=== PATIENT | male | born 1930 | race Caucasian/White ===

== ENCOUNTER → 2021-11-04 | Outpatient (CLI) | payer MEDICARE ==
[2021-11-04 14:00] VITALS: BP 127/81
[2021-11-04 14:10] VITALS: BP_SYST 129; BP_SYST 134; BP_DIAS 73; BP_DIAS 80
--- NOTE | 2021-11-04 14:28 | NUR ---
[employer] rep. adjusted pacemaker to pace at 75 during study. Patient's vital signs remained stable throughout study. Patient's pacemaker settings returned to previous settings after study was complete. No problems noted and patient assisted to radiology waiting area by MRI staff.
--- NOTE | 2021-11-04 14:56 | RAD ---
EXAM: Lumbar spine MRI without contrast. HISTORY: Spinal stenosis. TECHNIQUE: Multiplanar, multisequence magnetic resonance imaging of the lumbar spine was performed wi thout contrast. COMPARISON: None. FINDINGS: There is mild lumbar scoliosis. There is 2 mm grade 1 anterolisthesis of L4 and L5. There i s 3 mm retrolisthesis of L5 on S1. There is multilevel endplate remodeling. There is disc space narro wing and osteophytosis at L5-S1. There are few endplate Schmorl's nodes. There are few osseous suman iomas. There is no suspicious osseous lesion. The conus terminates at L1. At L1-L2, there is no stenosis. At L2-L3, there is a left foraminal disc protrusion and osteophyte complex superimposed on a disc bul ge and endplate remodeling. There is mild left extraforaminal stenosis. At L3-L4, there is a disc bulge and endplate remodeling. There is mild central canal stenosis. At L4-L5, there is a left foraminal to extraforaminal disc protrusion with 3 mm superior extrusion chavarria perimposed on endplate remodeling. There is severe bilateral facet arthropathy. There is hypertrophy of the ligamentum flavum. There is grade 1 anterolisthesis. There is mild left foraminal stenosis wit h near abutment of the exiting left L4 nerve root. There is moderate central canal stenosis. At L5-S1, there are bilateral foraminal to extra foraminal disc protrusions and osteophyte complexes superimposed on a disc bulge and endplate osteophytosis. There is retrolisthesis. There is moderate b ilateral foraminal stenosis with abutment of the exiting L5 nerve roots. IMPRESSION: Multilevel degenerative change involving the lumbar spine, described in detail above. Thi s results in stenosis at the aforementioned levels. The central canal stenosis is most significant at L4-L5 and the foraminal stenosis is most significant at L5-S1. Electronically signed by: Anita Ann MD (11/04/2021 2:54 PM) [id number]
== END ==
LOC: MRI 13:13
PROVIDERS: ATTEND Orthopaedic Surgery Sports Medicine
DX: M47.816 Spondylosis without myelopathy or radiculopathy, lumbar region (principal); M51.27 Other intervertebral disc displacement, lumbosacral region; M25.78 Osteophyte, vertebrae; M48.07 Spinal stenosis, lumbosacral region; M43.17 Spondylolisthesis, lumbosacral region; D18.09 Hemangioma of other sites; M51.46 Schmorl's nodes, lumbar region
CPT/HCPCS: 72148

== ENCOUNTER → 2021-11-23 | Outpatient (CLI) | payer MEDICARE ==
[2021-11-04 14:10] VITALS: BP 134/73
[~2021-11-23] MED LIST: ACET325T21 PO; ASCO500C PO; ASPI-630 PO; ATOR40TA59 PO; BRIM5DRO2 OP; CARV25TA2 PO; CYAN100072 PO; DEXAMETHASONE PRES.FREE 10 MG/ML VIAL. ONE; ERGO800010 PO; FINA5TAB4 PO; FURO-69 PO; GABA-585 PO; GLIM1TAB7 PO; HYDR-2868 PO; IOHEXOL 180 MG/ML 10 ML VIAL. ONE; LATA2.5D2 OU; MELA10CA PO; METF-658 PO; METF100010 PO; NAPR220T70 PO; NITR0.4T22 SL; POLY17PO29 PO; POTA-121 PO; TELM80TA PO; UBIQ100C2 PO
--- NOTE | 2021-11-23 13:03 | PDOC1 ---
INITIAL PAIN CONSULT DATE OF SERVICE: DOS: DATE: 11/23/21 TIME: 12:57 CHIEF COMPLAINT: Chief Complaint: Low back and right lower extremity pain HISTORY OF PRESENT ILLNESS: 89-year-old male presents with history of pain low back right lower extremity for about 2 months not the result of any specific injury or accident that he is aware of, but has been getting worse with time patient seen his orthopedic surgeon who did some x-rays on his hip and low back showed some moderate degenerative change of the hip but significant findings in the low back with MRI scan demonstrating L4-5 left foraminal extremities protrusion with superior extrusion superimposed on endplate remodeling with severe bilateral facet arthropathy with hypertrophy of ligamentum flavum mild left foraminal stenosis with near abutment of the exiting left L4 nerve root moderate central canal stenosis L5-S1 showing foraminal disc protrusion osteophyte complex superimposed on a disc bulge and endplate osteophytosis with moderate bilateral foraminal stenosis with abutment of the exiting L5 nerve roots. Patient reports pain is worse with walking standing changing positions worse in the morning better later in the day patient reports is constant in the back sharp and throbbing shooting in the leg and the right side posterior gluteus lateral thigh anterior thigh medial thigh and lateral calf radiating into the leg aching in the back as well patient reports its better at night generally does not awaken him from sleep does not affect his bowel bladder control does affect his go to walk and he is using a walker which he has with him today. Patient is had physical therapy and this is ongoing in home which she reports helped somewhat also had chiropractic treatments multiple times which were not helpful patient is doing exercise on his own as well patient taking Aleve 3 times a day as well as gabapentin 100 mg 3 times a day both of which help but only by about 30%. Patient rates his disability rating 0-10 10 being the worst is an 8 with family responsibilities and recreation 9 with social activity 8 with self-care and 7 with life support activities. Patient reports no bowel or bladder changes or incontinence, with the pain. PAST MEDICAL HISTORY: PMH: Arthritis, type 2 diabetes, coronary artery disease, bladder cancer PREVIOUS SURGERIES: Past Surgical Hx: Bilateral cataract extractions, coronary artery bypass grafting, pacemaker placement CURRENT MEDICATIONS: Current Meds: Active Scripts Medications Dose Route/Sig Max Daily Dose Days Date Category Dose Instructions Aleve (Naproxen Sodium) 220 Mg Tablet 220 Mg PO TID 11/23/21 Reported Gabapentin (Gabapentin) 100 Mg Capsule 100 Mg PO TID 11/23/21 Reported Micardis (Telmisartan) 80 Mg Tablet 1 Tab PO DAILY 11/23/21 Reported Klor-Con M20 (Potassium Chloride) 20 Meq Tab.er.prt 20 Meq PO DAILY 11/23/21 Reported NITROGLYCERIN SubLingual (Nitroglycerin) 0.4 Mg Tab.subl 0.4 Mg SL PRN Q5MIN PRN 11/23/21 Reported Miralax (Polyethylene Glycol 3350) 17 Gm Powd.pack 1 Packet PO DAILY 2 11/23/21 Reported dissolve in water Metformin Hcl Er (Metformin Hcl) 500 Mg Tab.er.24h 500 Mg PO HS 11/23/21 Reported Metformin Hcl Er (Metformin Hcl) 1,000 Mg Tab.er.24 1,000 Mg PO DAILY 11/23/21 Reported Melatonin 10 Mg Capsule 1 Cap PO QHS 30 11/23/21 Reported Xalatan (Latanoprost) 2.5 Ml Drops 1 Drop OU QHS 11/23/21 Reported Hydralazine Hcl 25 Mg Tablet 1 Tab PO TID 11/23/21 Reported Glimepiride 1 Mg Tablet 1 Tab PO DAILY 11/23/21 Reported Gabapentin (Gabapentin) 100 Mg Capsule 100 Mg PO TID 11/23/21 Reported Lasix (Furosemide) 20 Mg Tablet 1 Tab PO DAILY PRN 30 11/23/21 Reported Finasteride 5 Mg Tablet 1 Tab PO DAILY 11/23/21 Reported Ergocalciferol (Ergocalciferol (Vitamin D2)) 200 Mcg/1 Ml Drops 1,250 Mcg PO WEEKLY 11/23/21 Reported B-12 (Cyanocobalamin (Vitamin B-12)) 1,000 Mcg Tablet 500 Mcg PO DAILY 11/23/21 Reported Ubiquinol 100 Mg Capsule 1 Cap PO DAILY 30 11/23/21 Reported Combigan Eye Drops (Brimonidine Tartrate/Timolol) 5 Ml Drops 5 Ml OP DAILY 11/23/21 Reported Carvedilol 25 Mg Tablet 25 Mg PO BIDWMEALS 11/23/21 Reported Atorvastatin Calcium 40 Mg Tablet 1 Tab PO DAILY 11/23/21 Reported Aspirin 81 Mg Tab.chew 1 Tab PO DAILY 11/23/21 Reported Vitamin C (Ascorbic Acid) 500 Mg Capsule.er 250 Mg PO DAILY 11/23/21 Reported Acetaminophen 325 Mg Tablet 1 Tab PO PRN DAILY PRN 30 11/23/21 Reported ALLERGIES; Allergies: Coded Allergies: lisinopril (Verified Allergy, Severe, cough, swelling, 11/23/21) ciprofloxacin (Verified Allergy, Intermediate, rash, 11/23/21) propoxyphene (Verified Allergy, Intermediate, unk, 11/23/21) FAMILY HISTORY: Family Hx: Hypertension, heart disease SOCIAL HISTORY: Social Hx: Patient drinks alcohol rarely maybe once or twice a year does not smoke not use any illegal illicit recreational drugs is lives with his spouse lives locally in [facility] and is currently retired. REVIEW OF SYSTEMS: ROS: Positive for those items mentioned in history of present illness, all systems are reviewed, otherwise negative ,and are complete full and well-documented on patient's chart. PHYSICAL EXAM: VS: Blood pressure is 161/86 pulse 59 respirations 16 temperature 98.1 F height 5 feet 6 inches weight 198 pounds. PE: PHYSICAL EXAMINATION: GENERAL: The patient is awake, alert, oriented, appropriate, very pleasant in demeanor, patient accompanied by his daughter HEENT: Shows normocephalic, atraumatic. Extraocular movements are intact and symmetrical. Oral cavity: Mucous membranes moist and pink. NECK: Shows anterior throat supple without palpable lymphadenopathy noted. Swallow reflex symmetrical. CHEST: Shows normal on inspection. Breath sounds are clear bilaterally, distant but no rales rhonchi wheezes auscultated. HEART: Shows S1, S2 clear. No murmurs auscultated. ABDOMEN: Soft, nontender, nondistended. No palpable organomegaly is noted. BACK: Shows spine grossly in the midline. Normal-appearing cervical lordotic curvature. There is moderately increased thoracic kyphosis, some mild flattening of the lumbar lordotic curvature. Lumbar paraspinous muscles show symmetrical on inspection, on palpation shows some moderate tenderness diffusely throughout the upper, middle and lower distribution of the paraspinous muscles bilaterally and also into the lower thoracic paraspinous musculature, firm and tender, but without specific trigger points, without radiation of pain. The patient has good rotational motion of the lumbar spine, both laterally as well as extension and flexion without significant difficulty. No tenderness over the spinous processes, sacrum or sacroiliac regions. EXTREMITIES: Lower extremities show deep tendon reflexes 1+ in the patellar and tendo calcaneus tendons. Motor exam is 4 on a scale of 5 with right dorsiflexion, extension, quadriceps and hamstring flexion and 5/5 on the left. Peripheral pulses are 1+ posterior tibial. No peripheral edema is noted bilaterally. Lower extremities are warm and dry to touch, equal in color and appearance. SKIN: Shows warm and dry, good turgor. No edema. No sores, rashes or bruising throughout. IMPRESSION: Impression: 89-year-old male with approximate 2-month history increasing pain low back right lower extremity radicular fashion. MRI scan lumbar spine as noted Arthritis Type 2 diabetes Coronary artery disease Plan: Options discussed with the patient including conservative managements, continued physical therapies and interventional techniques. Patient would like to pursue interventional techniques. We discussed a lumbar epidural steroid injection using descriptions as well as anatomical models to describe the procedure. Risks were discussed including but not limited to: Bleeding, infection, possibility of epidural hematoma and subsequent neurological compromise, dural puncture, headaches, spinal cord and/or nerve damage, side effects of steroid medication, and poor results regarding pain control. Patient understands and wished to proceed. Patient will return to clinic in approximate 2 weeks for follow-up, was counseled as to return appointment, activity level, and side effects to be aware of. Procedure is lumbar epidural steroid injection under local anesthetic using sterile prep and drape at the L4-5 level using C-arm fluoroscopic guidance in both AP and lateral views medications injected is 20 mg dexamethasone +10mL preservative-free normal saline and 2 mL contrast- condition at discharge is stable patient tolerated procedure well had no complications. ITALO CORDOVA MD Nov 23, 2021 13:03
--- NOTE | 2021-11-23 13:04 | PDOC4 ---
Procedure Note: ICD 10 Code: ICD 10 Code: M54.16 M51.36 M4 8.06 Procedure Note: Patient consented for lumbar epidural steroid injection with fluoroscopic guidance. Risks were discussed including but not limited to: Bleeding, infection, possibility of epidural hematoma and subsequent neurological compromise, dural puncture, headaches, spinal cord and/or nerve damage, side effects of steroid medication, and poor results regarding pain control. Patient understands and wished to proceed. Procedure is lumbar epidural steroid injection under local anesthetic using sterile prep and drape at the L4-5 level using C-arm fluoroscopic guidance in both AP and lateral views medications injected is 20 mg dexamethasone +10mL preservative-free normal saline and 2 mL contrast- condition at discharge is stable patient tolerated procedure well had no complications. ITALO CORDOVA MD Nov 23, 2021 13:04
== END | disposition home or self-care (01) ==
LOC: PNCL 11:19
PROVIDERS: ATTEND Anesthesiology
DX: M51.16 Intervertebral disc disorders with radiculopathy, lumbar region (principal); M48.061 Spinal stenosis, lumbar region without neurogenic claudication; Z79.82 Long term (current) use of aspirin; Z79.84 Long term (current) use of oral hypoglycemic drugs; Z79.899 Other long term (current) drug therapy; Z88.1 Allergy status to other antibiotic agents; Z88.8 Allergy status to other drugs, medicaments and biological substances
CPT/HCPCS: 62323; J1100; Q9965